=== PATIENT | female | born 1960 | race Caucasian/White ===

== ENCOUNTER 2019-05-04 17:00 | Observation (INO) ==
[2019-05-04 17:33] LABS: Bilirubin,Urine Negative (Negative); Blood,Urine Negative (Negative); Clarity,Urine Clear (Clear); Color,Urine Yellow (Yellow); Glucose,Urine (UA) Normal (Normal); Ketones,Urine Negative (Negative); Leukocyte Esterase,Urine Trace (Negative); Nitrite,Urine Negative (Negative); PH,Urine 7.5 pH Units (5.0-8.0); Protein,Urine Negative (Neg-Trace); Urobilinogen,Urine Normal (Normal)
[2019-05-04 17:35] LABS: Bacteria,Urine None Seen per hpf (None-Few); Hyaline Casts,Urine None Seen per lpf (None-Few); RBC,Urine 0-3 per hpf (0-3); Squamous Epithelial Cell,Urine Many per lpf (None-Few)
[2019-05-04 17:39] LABS: Amphetamine Screen,Urine Negative ng/mL (Cutoff=1000); Barbiturate Screen,Urine Negative ng/mL (Cutoff=200); Benzodiazepines Screen,Urine Negative ng/mL (Cutoff=200); Cannabinoid Screen,Urine Negative ng/mL (Cutoff = 50); Cocaine Screen,Urine Negative ng/mL (Cutoff= 300); Opiate Screen,Urine Negative ng/mL (Cutoff=300); Phencyclidine Screen,Urine Negative ng/mL (Cutoff=25)
[2019-05-04 17:48] LABS: Basophils # 0.1 K/mcL (0.0-0.2); Basophils % 0.7 %; Eosinophils # 0.5 K/mcL (0.0-0.6); Eosinophils % 7.5 %; Hematocrit 37.9 % (35.3-44.9); Hemoglobin 12.7 g/dL (11.5-15.4); Immature Granulocytes % 0.1 % (0-4); Lymphocytes # 1.6 K/mcL (0.6-4.6); Mean Corpuscular HGB Conc 33.5 g/dL (31.6-35.5); Mean Corpuscular Hemoglobin 32.1 pg (28.0-33.3); Mean Corpuscular Volume 95.7 fL (83.0-100.0); Mean Platelet Volume 10.9 fL (9.4-12.4); Monocytes # 0.5 K/mcL (0.0-1.3); Monocytes % 7.1 %; Neutrophils # 4.4 K/mcL (1.6-8.9); Platelet Count 210 K/mcL (140-400); Red Blood Count 3.96 M/mcL (3.82-4.97); Red Cell Distribution Width 12.2 % (11.5-14.5); Segmented Neutrophils % 62.6 %; White Blood Count 7.1 K/mcL (4.3-11.1)
[2019-05-04 18:07] LABS: Acetaminophen < 10 mcg/mL (10-20); BUN/Creatinine Ratio 25 (6-26); Blood Urea Nitrogen 15 mg/dL (6-20); Calcium 9.9 mg/dL (8.6-10.3); Carbon Dioxide 29 mEq/L (23-29); Chloride 101 mEq/L (98-107); Ethanol < 10 mg/dL (Less than 10); Glucose 95 mg/dL (70-105); Osmolality,Calculated 289 (280-300); Potassium 4.1 mEq/L (3.5-5.1); Salicylate < 2.5 mg/dL (15.0-30.0); Sodium 139 mEq/L (136-145); eGFR For African Americans > 60 (> 60); eGFR For Non-African Americans > 60 (> 60)
[2019-05-04] MEDS ORDERED: *HR* LORazepam 1 MG TABLET PO PRN (21:23)
[2019-05-04] MEDS ORDERED: Haloperidol Lactate 5 MG/ML VIAL IM PRN (21:23)
[2019-05-04] MEDS ORDERED: Acetaminophen 325 MG TABLET PO PRN (21:23)
[2019-05-04] MEDS ORDERED: *HR* LORazepam 2 MG/ML VIAL IM PRN (21:23)
[2019-05-04] MEDS ORDERED: hydrOXYzine pamoate 25 MG CAPSULE PO PRN (21:23)
[2019-05-04] MEDS ORDERED: Mag Hydrox/Al Hydrox/Simeth 30 ML UDC PO PRN (21:23)
[2019-05-04] MEDS ORDERED: traZODone 50 MG TABLET PO PRN (21:23)
[2019-05-05] MEDS ORDERED: ARIPiprazole 5 MG TABLET PO SCH (21:00)
[2019-05-06 10:08] VITALS: BP 110/68
== END 2019-05-06 10:00 | disposition home or self-care (01) ==
LOC: 1ANU 17:00 → EMEROOARM 17:00 → 1ANU 20:38
PROVIDERS: ADMIT Psychiatry & Neurology Psychiatry; ATTEND Psychiatry & Neurology Psychiatry

== ENCOUNTER 2021-03-17 13:03 | Inpatient (IN) ==
[2021-03-17] MEDS ORDERED: *HR* LORazepam 2 MG/ML VIAL IVP ONE (13:28)
[2021-03-17 14:10] LABS: Amphetamine Screen,Urine Negative ng/mL (Cutoff=1000); Barbiturate Screen,Urine Negative ng/mL (Cutoff=200); Benzodiazepines Screen,Urine Negative ng/mL (Cutoff=200); Cannabinoid Screen,Urine Negative ng/mL (Cutoff = 50); Cocaine Screen,Urine Negative ng/mL (Cutoff= 300); Opiate Screen,Urine Negative ng/mL (Cutoff=300); Phencyclidine Screen,Urine Negative ng/mL (Cutoff=25)
[2021-03-17 14:11] LABS: Bacteria,Urine Few per hpf (None-Few); Bilirubin,Urine Negative (Negative); Blood,Urine Trace (Negative); Clarity,Urine Turbid (Clear); Color,Urine Light-Yellow (Yellow); Glucose,Urine (UA) Normal (Normal); Ketones,Urine Negative (Negative); Leukocyte Esterase,Urine Large (Negative); Nitrite,Urine Negative (Negative); Protein,Urine Negative (Neg-Trace); Specific Gravity,Urine 1.011 (1.010-1.025); Squamous Epithelial Cell,Urine Moderate per hpf (None-Few); Urobilinogen,Urine Normal (Normal); WBC,Urine TNTC per hpf (0-3)
[2021-03-17 14:28] LABS: Basophils % 0.4 %; Eosinophils # 0.2 K/mcL (0.0-0.6); Eosinophils % 2.2 %; Hematocrit 35.9 % (35.3-44.9); Hemoglobin 11.6 g/dL (11.5-15.4); Immature Granulocytes % 0.4 % (0-4); Lymphocytes # 1.6 K/mcL (0.6-4.6); Lymphocytes % 22.4 %; Mean Corpuscular HGB Conc 32.3 g/dL (31.6-35.5); Mean Corpuscular Hemoglobin 30.8 pg (28.0-33.3); Mean Corpuscular Volume 95.2 fL (83.0-100.0); Mean Platelet Volume 11.2 fL (9.4-12.4); Monocytes # 0.4 K/mcL (0.0-1.3); Monocytes % 5.7 %; Neutrophils # 4.8 K/mcL (1.6-8.9); Platelet Count 202 K/mcL (140-400); Red Blood Count 3.77 M/mcL (3.82-4.97); Red Cell Distribution Width 12.2 % (11.5-14.5); Segmented Neutrophils % 68.9 %
[2021-03-17 14:52] LABS: Acetaminophen < 10 mcg/mL (10-20); BUN/Creatinine Ratio 21 (6-26); Blood Urea Nitrogen 15 mg/dL (6-20); Calcium 9.7 mg/dL (8.6-10.3); Carbon Dioxide 27 mEq/L (23-29); Chloride 104 mEq/L (98-107); Cholesterol 174 mg/dL (< 200); Ethanol < 10 mg/dL (Less than 10); Glucose 109 mg/dL (70-105); HDL Cholesterol 86 mg/dL (40-59); LDL Cholesterol,Calculated 81 mg/dL (< 100); Osmolality,Calculated 283 (280-300); Potassium 4.1 mEq/L (3.5-5.1); Salicylate < 2.5 mg/dL (15.0-30.0); Sodium 136 mEq/L (136-145); Triglycerides 36 mg/dL (< 150); eGFR For African Americans > 60 (> 60); eGFR For Non-African Americans > 60 (> 60)
[2021-03-17 15:07] LABS: Estimated Average Glucose 120 mg/dl; Hemoglobin A1C 5.8 %
[2021-03-17 15:10] LABS: Influenza A PCR Negative (Negative); Influenza B PCR Negative (Negative); Resp. Syncytial Virus PCR Negative (Negative)
[2021-03-17 15:11] LABS: SARS-CoV-2 by PCR (In House) Negative (Negative)
[2021-03-17] MEDS ORDERED: Sulfamethoxazole/Trimeth DS 1 EACH TABLET PO ONE (15:11)
[2021-03-17] MEDS ORDERED: *HR* LORazepam 2 MG/ML VIAL IM PRN (17:00)
[2021-03-17] MEDS ORDERED: *HR* LORazepam 1 MG TABLET PO PRN (17:00)
[2021-03-17] MEDS ORDERED: Acetaminophen 325 MG TABLET PO PRN (17:00)
[2021-03-17] MEDS ORDERED: Haloperidol Lactate 5 MG/ML VIAL IM PRN (17:00)
[2021-03-17] MEDS ORDERED: haloperidoL 5 MG TABLET PO PRN (17:00)
[2021-03-17] MEDS: VRAYLAR 1.5 MG PO SCH (19:58)
[2021-03-17] MEDS: traZODone 50 MG TABLET PO SCH (20:07)
[2021-03-17] MEDS: Sulfamethoxazole/Trimeth DS 1 EACH TABLET PO SCH (20:07)
[2021-03-18] MEDS: lisinopriL 20 MG TABLET PO SCH (08:18)
[2021-03-18] MEDS: Sulfamethoxazole/Trimeth DS 1 EACH TABLET PO SCH ×2 (08:18→21:04)
[2021-03-18] MEDS ORDERED: MOM Conc 10 ML UD.LIQ PO PRN (10:19)
[2021-03-18] MEDS ORDERED: hydrOXYzine pamoate 25 MG CAPSULE PO PRN (10:19)
[2021-03-18] MEDS ORDERED: Mag Hydrox/Al Hydrox/Simeth 30 ML UDC PO PRN (10:19)
[2021-03-18] MEDS: VRAYLAR 1.5 MG PO SCH (12:07)
[2021-03-18] MEDS: traZODone 50 MG TABLET PO SCH (21:04)
[2021-03-19] MEDS: Sulfamethoxazole/Trimeth DS 1 EACH TABLET PO SCH ×2 (08:01→20:22)
[2021-03-19] MEDS: lisinopriL 20 MG TABLET PO SCH (08:01)
[2021-03-19] MEDS: VRAYLAR 1.5 MG PO SCH (08:56)
[2021-03-19] MEDS: traZODone 50 MG TABLET PO SCH (20:22)
[2021-03-20 08:56] VITALS: BP 126/78; PULSE 92; TEMP 98.6; O2SAT 97
[2021-03-20] MEDS: lisinopriL 20 MG TABLET PO SCH (09:22)
[2021-03-20] MEDS: Sulfamethoxazole/Trimeth DS 1 EACH TABLET PO SCH (09:22)
[2021-03-20] MEDS: VRAYLAR 1.5 MG PO SCH (09:23)
== END 2021-03-20 11:05 | disposition home or self-care (01) | DRG 756 ==
LOC: EMEROOARM 13:03 → 1ANU 17:27
PROVIDERS: ADMIT Psychiatry & Neurology Psychiatry; ATTEND Psychiatry & Neurology Psychiatry